=== PATIENT | female | born 1970 | race Caucasian/White ===

== ENCOUNTER 2021-01-30 19:26 | Emergency (ER) | payer BC ==
[~2021-01-30] VITALS: Ht 160 cm; Wt 72.1 kg
[2021-01-30 19:32] VITALS: Ht 160 cm; Wt 72.1 kg
[2021-01-30 20:51] LABS: UA SPECIFIC GRAVITY >=1.030 (1.005-1.035); microscopic required? YES; urine erythrocyte 1+ (NEGATIVE)
[2021-01-30 21:04] LABS: BASOPHIL % 0.7 % (0.2-1.3); PLATELET COUNT 353 x10^3mcL (179-408)
[2021-01-30 21:23] LABS: CALCIUM 8.7 mg/dL (8.5-10.1); CARBON DIOXIDE 29.4 mmol/L (21-32); CHLORIDE SERUM 105 mmol/L (98-107); GFR1 > 60 mL/min; GLUCOSE SERUM 78 mg/dL (74-106); POTASSIUM SERUM 3.7 mmol/L (3.5-5.1); SODIUM SERUM 143 mmol/L (136-145)
[2021-01-30 21:27] LABS: ALKALINE PHOSPHATASE 104 U/L (46-116); ALT/SGPT 61 U/L (14-59); AST/SGOT 31 U/L (15-37); BILIRUBIN TOTAL 0.45 mg/dL (0.20-1.00); TOTAL PROTEIN, SERUM 8.3 g/dL (6.4-8.2)
[2021-01-30] MEDS ORDERED: MOT800 PO (22:33)
[2021-01-30 22:48] VITALS: BP 131/93
== END 2021-01-30 22:48 | disposition home or self-care (01) ==
LOC: ED 19:26
PROVIDERS: Specialist
DX: M54.5 Low back pain (principal)